=== PATIENT | female | born 1955 | race Caucasian/White ===

== ENCOUNTER 2022-04-17 18:18 | Outpatient (CLI) | payer MEDICAID, SELFPAY ==
--- NOTE | 2022-04-17 18:30 | CRLHL7_ITS ---
For Patients: As a result of the Century Cures Act, medical imaging exams and procedure reports are released immediately into your electronic medical record. You may view this report before your referring provider. If you have questions, please contact your health care provider. BILATERAL SCREENING MAMMOGRAM WITH COMPUTER-AIDED DETECTION AND TOMOSYNTHESIS TECHNIQUE: CC and MLO views were obtained. These mammographic images have been obtained using full-field digital technique. These mammographic images were interpreted with the benefit of computer-aided detection. Breast Tomosynthesis was used in this interpretation. COMPARISON FILM: 03/14/21, 01/12/20, 12/30/18. FINDINGS: There are scattered areas of fibroglandular density IMPRESSION: There is no radiographic evidence for malignancy. ASSESSMENT: BI-RADS Category 1: Negative RECOMMENDATION: Routine screening mammogram in 1 year. A lay language report of this examination will be provided to the patient. Kodak Claire M.D. Diagnostic Radiologist [email or web address] SARIKA/Dictated by: Kodak Claire MD @ 04/18/2022 8:13:00 AM (Electronically Signed)
== END 2022-04-17 18:19 | disposition home or self-care (01) ==
LOC: MAMMO 18:20
PROVIDERS: PCP Family Medicine; Visit Provider Family Medicine
DX: Z12.31 Encounter for screening mammogram for malignant neoplasm of breast (principal)
CPT/HCPCS: 77063; 77067

== ENCOUNTER 2022-05-16 16:15 | Outpatient (CLI) | payer MEDICAID, SELFPAY ==
[2022-05-16 12:35] LABS: Albumin* 4.4 g/dL (3.3-5.0); Chloride* 107 mmol/L (96-114)
[2022-05-16 12:36] LABS: Potassium* 3.9 mmol/L (3.6-5.1); Sodium* 140 mmol/L (135-149)
[2022-05-16 12:38] LABS: Carbon Dioxide* 22 mmol/L (20-32); Cholesterol* 159 mg/dL (90-199); Estimated Glomerular Filt Rate 63 ml/min
[2022-05-16 12:39] LABS: Alanine Aminotransferase* 29 U/L (4-35); Alkaline Phosphatase* 101 U/L (40-150); Aspartate Amino Transferase* 29 U/L (12-35); Bilirubin Total* 1.3 mg/dL (0.1-1.5); Blood Urea Nitrogen* 21 mg/dL (7-30); Calcium* 9.5 mg/dL (8.4-10.6); Glucose* 115 mg/dL (60-115); HDL Cholesterol* 38 mg/dL (>=50); LDL Cholesterol Calculated 82 mg/dL (<100); Triglycerides* 197 mg/dL (40-149)
== END 2022-05-16 16:16 | disposition home or self-care (01) ==
PROVIDERS: PCP Family Medicine; Visit Provider Family Medicine
DX: Z01.818 Encounter for other preprocedural examination (principal); E78.5 Hyperlipidemia, unspecified; I10 Essential (primary) hypertension; R73.03 Prediabetes
CPT/HCPCS: 80053; 80061

== ENCOUNTER 2022-05-17 10:01 | Outpatient (CLI) | payer MEDICAID, SELFPAY ==
--- NOTE | 2022-05-17 11:24 | W.ANESCHARGE ---
Anesthesia Charges Start Date/Time Anesthesia Start Date: 05/17/22 Anesthesia Start Time: 10:44 Stop Date/Time Anesthesia Stop Date: 05/17/22 Anesthesia Stop Time: 11:20 Summary Emergency: No
--- NOTE | 2022-05-17 11:44 | W.ANESCHARGE ---
Anesthesia Charges Start Date/Time Anesthesia Start Date: 05/17/22 Anesthesia Start Time: 10:44 Stop Date/Time Anesthesia Stop Date: 05/17/22 Anesthesia Stop Time: 11:20 Summary Emergency: No
== END 2022-05-17 10:02 | disposition home or self-care (01) ==
PROVIDERS: PCP Family Medicine; Visit Provider Surgery
DX: Z12.11 Encounter for screening for malignant neoplasm of colon (principal); K63.5 Polyp of colon; K62.1 Rectal polyp; Z85.038 Personal history of other malignant neoplasm of large intestine; Z15.09 Genetic susceptibility to other malignant neoplasm
CPT/HCPCS: 00811; 45385; 88305; J2704

== ENCOUNTER 2022-08-14 16:19 | Outpatient (CLI) | payer MEDICAID, SELFPAY ==
[2022-08-14 14:03] LABS: Cholesterol* 285 mg/dL (90-199); HDL Cholesterol* 44 mg/dL (>=50); LDL Cholesterol Calculated 189 mg/dL (<100); Triglycerides* 262 mg/dL (40-149)
== END 2022-08-14 16:20 | disposition home or self-care (01) ==
PROVIDERS: PCP Family Medicine; Visit Provider Family Medicine
DX: E78.5 Hyperlipidemia, unspecified (principal)
CPT/HCPCS: 80061

== ENCOUNTER 2023-05-28 08:07 | Outpatient (CLI) | payer MEDICARE, SELFPAY ==
--- NOTE | 2023-05-28 09:45 | W.ANESCHARGE ---
Anesthesia Charges Start Date/Time Anesthesia Start Date: 05/28/23 Anesthesia Start Time: 08:54 Stop Date/Time Anesthesia Stop Date: 05/28/23 Anesthesia Stop Time: 09:40
--- NOTE | 2023-05-28 09:49 | W.ANESCHARGE ---
Anesthesia Charges Start Date/Time Anesthesia Start Date: 05/28/23 Anesthesia Start Time: 08:54 Stop Date/Time Anesthesia Stop Date: 05/28/23 Anesthesia Stop Time: 09:40
== END 2023-05-28 08:08 | disposition home or self-care (01) ==
LOC: OP CLINIC 08:08
PROVIDERS: PCP Family Medicine; Visit Provider Surgery
DX: Z12.11 Encounter for screening for malignant neoplasm of colon (principal); K63.5 Polyp of colon; Z15.09 Genetic susceptibility to other malignant neoplasm; Z85.038 Personal history of other malignant neoplasm of large intestine
CPT/HCPCS: 00813; 43239; 45385; 88305; 88342; J2704

== ENCOUNTER 2023-07-17 14:40 | Outpatient (CLI) | payer MEDICARE, SELFPAY ==
--- NOTE | 2023-07-17 15:00 | CRLHL7_ITS ---
For Patients: As a result of the Century Cures Act, medical imaging exams and procedure reports are released immediately into your electronic medical record. You may view this report before your referring provider. If you have questions, please contact your health care provider. BILATERAL SCREENING MAMMOGRAM WITH COMPUTER-AIDED DETECTION AND TOMOSYNTHESIS TECHNIQUE: CC and MLO views were obtained. These mammographic images have been obtained using full-field digital technique. These mammographic images were interpreted with the benefit of computer-aided detection. Breast Tomosynthesis was used in this interpretation. COMPARISON FILM: 04/17/22, 03/14/21, 01/12/20. FINDINGS: There are scattered areas of fibroglandular density IMPRESSION: There is no radiographic evidence for malignancy. ASSESSMENT: BI-RADS Category 1: Negative RECOMMENDATION: Routine screening mammogram in 1 year. A lay language report of this examination will be provided to the patient. Kodak Claire M.D. Diagnostic Radiologist [email or web address] SARIKA/Dictated by: Kodak Claire MD @ 07/18/2023 8:35:00 AM (Electronically Signed)
== END 2023-07-17 14:41 | disposition home or self-care (01) ==
LOC: MAMMO 14:41
PROVIDERS: PCP Family Medicine; Visit Provider Family Medicine
DX: Z12.31 Encounter for screening mammogram for malignant neoplasm of breast (principal)
CPT/HCPCS: 77063; 77067

== ENCOUNTER 2023-07-25 08:53 | Outpatient (CLI) | payer MEDICARE, SELFPAY | END 2023-07-25 08:54 | disposition home or self-care (01) | PROVIDERS: PCP Family Medicine; Referring Provider Family Medicine; Visit Provider Family Medicine | DX: R73.03 Prediabetes (principal); E78.2 Mixed hyperlipidemia | CPT/HCPCS: 80053 ==

== ENCOUNTER 2023-07-30 11:58 | Outpatient (CLI) | payer MEDICARE, SELFPAY | END 2023-07-30 11:59 | disposition home or self-care (01) | PROVIDERS: PCP Family Medicine; Visit Provider Family Medicine | DX: Z00.00 Encounter for general adult medical examination without abnormal findings (principal); E78.5 Hyperlipidemia, unspecified; I10 Essential (primary) hypertension | CPT/HCPCS: 80061 ==

== ENCOUNTER 2023-08-28 14:39 | Outpatient (CLI) | payer MEDICARE, SELFPAY ==
--- NOTE | 2023-08-28 15:00 | CRLHL7_ITS ---
For Patients: As a result of the Century Cures Act, medical imaging exams and procedure reports are released immediately into your electronic medical record. You may view this report before your referring provider. If you have questions, please contact your health care provider. DXA BONE MINERAL DENSITY STUDY Reason for exam: Screening. Current height (in): 64.0. Weight (lb): 206.0. Menopause age: 54. Ethnicity: White. 1. Have you had a previous hip or vertebral fracture? No. 2. Have you had any fractures during your adult life which did not result from significant trauma (e.g., auto accident)? No. 3. Did either of your parents have a hip fracture? No. 4. Do you smoke? No. 5. Have you ever taken Glucocorticoids? No. 6. Do you have rheumatoid arthritis? Yes. 7. Do you have secondary osteoporosis? No. 8. Do you drink 3 or more alcoholic drinks per day? No. 9. Are you being treated for osteoporosis? No. 10. Have you ever taken any of the following medications: Actonel, Evista, Fosamax, Miacalcin, Reclast, Boniva, Forteo, HRT (i.e. estrogen/hormone therapy), Protelos, Prolia, Vitamin D, Calcium, other ??? please specify. ANSWER: No. 11. Do you have any of the following medical conditions: Anorexia or bulimia, asthma or emphysema, end stage renal disease, hyperparathyroidism, any seizure disorders, cancer, inflammatory bowel diseases, hysterectomy, other ??? please specify. ANSWER: Yes, degenerative scoliosis, hysterectomy. 12. What was your maximum height (inches)? 65. 13. Do you perform weight bearing exercise regularly? No. 14. Do you regularly consume dairy products? Yes. 15. Do you drink caffeinated beverages? Yes. 16. At what age did your period start? 13. 17. Are you premenopausal? No. 18. How many full-term pregnancies have you had? 2. 19. Have you ever missed your period for more than 6 months in a row (not including or menopause)? No. TECHNIQUE: Bone mineral density study was performed using the [employer]. FINDINGS: The results of the study expressed as bone mineral density (BMD) are as follows: Lumbar spine L1 to L4: BMD: 1.041 g/cm2. T-score: -0.1. Z-score: 1.8. Neck Left: BMD: 0.653 g/cm2. T-score: -1.8. Z-score: -0.2. Right: BMD: 0.619 g/cm2. T-score: -2.1. Z-score: -0.5. Total Left: BMD: 0.841 g/cm2. T-score: -0.8. Z-score: 0.4. Right: BMD: 0.826 g/cm2. T-score: -1.0. Z-score: 0.3. IMPRESSION: Osteopenia. FRAX 10-year Fracture Risk Major Osteoporotic Fracture: 13 percent Hip Fracture: 2.1 percent Reported Risk Factors: [place] () Neck BMD=0.619, BMI=35.4, rheumatoid arthritis Kodak Claire M.D. Diagnostic Radiologist [email or web address] RAJNI/[email or web address] / be/Dictated by: Kodak Claire MD @ 08/28/2023 3:49:00 PM (Electronically Signed)
== END 2023-08-28 14:40 | disposition home or self-care (01) ==
LOC: RAD 14:41
PROVIDERS: PCP Family Medicine; Visit Provider Family Medicine
DX: Z13.820 Encounter for screening for osteoporosis (principal); M85.89 Other specified disorders of bone density and structure, multiple sites
CPT/HCPCS: 77080

== ENCOUNTER 2024-03-05 09:27 | Outpatient (CLI) | payer MEDICARE, SELFPAY ==
--- NOTE | 2024-03-05 11:23 | W.ANESCHARGE ---
Anesthesia Charges Start Date/Time Anesthesia Start Date: 03/05/24 Anesthesia Start Time: 10:47 Stop Date/Time Anesthesia Stop Date: 03/05/24 Anesthesia Stop Time: 11:21
== END 2024-03-05 09:28 | disposition home or self-care (01) ==
LOC: OP CLINIC 09:28
PROVIDERS: PCP Family Medicine; Visit Provider Surgery
DX: Z86.010 Personal history of colon polyps (principal); Z15.09 Genetic susceptibility to other malignant neoplasm; K63.5 Polyp of colon; K62.1 Rectal polyp
CPT/HCPCS: 00811; 45380; 45385; 88305; J2704

== ENCOUNTER 2024-05-26 12:53 | Outpatient (CLI) | payer MEDICARE, SELFPAY | END 2024-05-26 12:54 | disposition home or self-care (01) | LOC: LKVREF 12:53 | PROVIDERS: PCP Family Medicine; Visit Provider Family Medicine | DX: E78.5 Hyperlipidemia, unspecified (principal); I10 Essential (primary) hypertension | CPT/HCPCS: 80053; 80061 ==

== ENCOUNTER 2024-08-11 13:00 | Outpatient (CLI) | payer MEDICARE, SELFPAY ==
--- NOTE | 2024-08-11 13:20 | CRLHL7_ITS ---
For Patients: As a result of the Century Cures Act, medical imaging exams and procedure reports are released immediately into your electronic medical record. You may view this report before your referring provider. If you have questions, please contact your health care provider. BILATERAL SCREENING MAMMOGRAM WITH COMPUTER-AIDED DETECTION AND TOMOSYNTHESIS TECHNIQUE: CC and MLO views were obtained. These mammographic images have been obtained using full-field digital technique. These mammographic images were interpreted with the benefit of computer-aided detection. Breast Tomosynthesis was used in this interpretation. COMPARISON FILM: 07/17/23, 04/17/22, 03/14/21. FINDINGS: The breasts are almost entirely fatty. IMPRESSION: There is no radiographic evidence for malignancy. ASSESSMENT: BI-RADS Category 2: Benign RECOMMENDATION: Routine screening mammogram in 1 year. A lay language report of this examination will be provided to the patient. Kodak Claire M.D. Diagnostic Radiologist [email or web address] SP/Dictated by: Kodak Claire MD @ 08/12/2024 9:15:00 AM (Electronically Signed)
== END 2024-08-11 13:01 | disposition home or self-care (01) ==
LOC: MAMMO 13:00
PROVIDERS: PCP Family Medicine; Visit Provider Family Medicine
DX: Z12.31 Encounter for screening mammogram for malignant neoplasm of breast (principal)
CPT/HCPCS: 77063; 77067

== ENCOUNTER 2025-04-29 08:15 | Outpatient (CLI) | payer MEDICARE, SELFPAY | END 2025-04-29 08:16 | disposition home or self-care (01) | LOC: NFLDREF 05-03 03:45 | PROVIDERS: PCP Family Medicine; Referring Provider Family Medicine; Visit Provider Family Medicine | DX: I10 Essential (primary) hypertension (principal); E78.5 Hyperlipidemia, unspecified | CPT/HCPCS: 80053; 80061 ==

== ENCOUNTER 2025-06-01 10:26 | Outpatient (CLI) | payer MEDICARE, SELFPAY ==
--- NOTE | 2025-06-01 11:41 | P.ANES_ITS ---
Anesthesia Charges Start Date/Time Anesthesia Start Date: 06/01/25 Anesthesia Start Time: 11:03 Stop Date/Time Anesthesia Stop Date: 06/01/25 Anesthesia Stop Time: 11:36 Coding CPT Codes CPT Codes: ANES LWR INTST NDSC NOS - [id number] ([id number]) P3 - PATIENT W/SEVERE SYS DISEASE, QK - MATERIAL CONTROLLER 2-4 CNCRNT ANES PROC, QX - SURVEYOR ROD HELPER SVC W/ MD MED DIRECTION
--- NOTE | 2025-06-01 11:41 | W.ANESCHARGE ---
Anesthesia Charges Start Date/Time Anesthesia Start Date: 06/01/25 Anesthesia Start Time: 11:03 Stop Date/Time Anesthesia Stop Date: 06/01/25 Anesthesia Stop Time: 11:36 Coding CPT Codes CPT Codes: ANES LWR INTST NDSC NOS - [id number] ([id number]) P3 - PATIENT W/SEVERE SYS DISEASE, QK - ASSISTANT ASSOCIATE PROFESSOR 2-4 CNCRNT ANES PROC, QX - RN UROLOGY SVC W/ MD MED DIRECTION
--- NOTE | 2025-06-01 11:46 | P.ANES_ITS ---
Anesthesia Charges Start Date/Time Anesthesia Start Date: 06/01/25 Anesthesia Start Time: 11:03 Stop Date/Time Anesthesia Stop Date: 06/01/25 Anesthesia Stop Time: 11:36 Coding CPT Codes CPT Codes: ANES LWR INTST NDSC NOS - [id number] ([id number]) QK - COFFEE SAMPLER 2-4 CNCRNT ANES PROC, QX - LEAD SHAREPOINT DEVELOPER SVC W/ MED DIRECTION, P3 - PATIENT W/SEVERE SYS DISEASE
--- NOTE | 2025-06-01 11:46 | W.ANESCHARGE ---
Anesthesia Charges Start Date/Time Anesthesia Start Date: 06/01/25 Anesthesia Start Time: 11:03 Stop Date/Time Anesthesia Stop Date: 06/01/25 Anesthesia Stop Time: 11:36 Coding CPT Codes CPT Codes: ANES LWR INTST NDSC NOS - [id number] ([id number]) QK - STEEL DIVISION SUPERVISOR 2-4 CNCRNT ANES PROC, QX - FAST FOOD COOK SVC W/ MED DIRECTION, P3 - PATIENT W/SEVERE SYS DISEASE
== END 2025-06-01 10:27 | disposition home or self-care (01) ==
LOC: OP CLINIC 10:26
PROVIDERS: PCP Family Medicine; Visit Provider Surgery
DX: Z12.11 Encounter for screening for malignant neoplasm of colon (principal); Z85.038 Personal history of other malignant neoplasm of large intestine; Z15.060 Genetic susceptibility to colorectal cancer; D12.2 Benign neoplasm of ascending colon; D12.8 Benign neoplasm of rectum; K64.8 Other hemorrhoids
CPT/HCPCS: 00811; 45380; 45385; 88305; J2704